=== PATIENT | male | born 1990 | race Caucasian/White ===

== ENCOUNTER 2019-12-13 17:41 | Emergency (ER) | payer BC, SELFPAY ==
[2019-12-13 17:42] VITALS: BP 132/85; PULSE 87; RESP 16; TEMP 36.4; O2SAT 99; BMI 24.3
--- NOTE | 2019-12-13 18:05 | HMH.EDUTC ---
[facility] [place] Clinical Impression: Gastroenteritis Disposition: Home, Self-Care Condition on Discharge: Good Instructions: Viral Gastroenteritis, DI for Viral Gastroenteritis -- Adult Additional Instructions: Drink plenty of fluids. Water, pedialyte or gatorade would be best. . Take tylenol or ibuprofen for pain or fever. Take the medications as directed. Return a stool sample if your diarrhea symptoms persist for the next 24 hours. Follow up with your regular doctor. GO TO THE ER FOR ANY WORSENING SYMPTOMS Prescriptions: Ondansetron [Zofran 4mg ODT] 4 mg PO Q8HP PRN #20 tab.rapdis PRN Reason: Nausea Transmission Status: Received by [id number] Referrals: Sam Ragsdale [Primary Care Provider] - Forms: Work/School Release Time of Disposition: 18:10 Medical Decision Making - Medical Records Medical records reviewed: No: I reviewed the patient's medical records. - Lul Inquiry Pt receiving controlled substance: No Vital Signs: 12/13/19 17:42 12/13/19 18:24 Temperature 97.6 F 97.6 F Temperature Source Oral Pulse Rate 87 Pulse Rate [Right Radial] 87 Respiratory Rate 16 16 Blood Pressure 132/85 Blood Pressure [Right Arm] 132/85 Blood Pressure Mean [Right Arm] 100 Blood Pressure Source [Right Arm] Automatic Cuff Blood Pressure Position [Right Arm] Sitting 02 Sat by Pulse Oximetry 99 Oxygen Delivery Method Room Air Orders (Tests/Meds): ED MEDICATIONS Discontinued Medications Generic Name Dose Route Start Last Admin Trade Name Freq PRN Reason Stop Dose Admin Ondansetron HCl 4 mg 12/13/19 18:01 12/13/19 18:01 Zofran 4mg Odt SL 12/13/19 18:02 4 mg ONCE ONE Administration [facility] [place] HPI - General Stated complaint: Possible food poison Time Seen by Provider: 12/13/19 18:05 Mode of Arrival: Ambulatory Source of Information: Patient Limitations: No Limitations HEENT Symptoms (Recalled from RN notes): No Resp Symptoms (Recalled from RN notes): No Skin Symptoms (Recalled from RN notes): No MS Symptoms (Recalled from RN notes): No Functional Status (Recalled from RN notes): N/A - History of Present Illness Provider Complaint: He c/o n/v/d for the past 2 days. His symptoms began after he ate out. No one else in his house are having similar symptoms. No one ate the same thing as he did either. He believes that he has food poisoning. - Related Data Previous Rx's Medication Instructions Recorded Ondansetron [Zofran 4mg ODT] 4 mg PO Q8HP PRN #20 tab.rapdis 12/13/19 Allergies Allergy/AdvReac Type Severity Reaction Status Date / Time SHELLFISH (FOOD) Allergy Unknown I-RASH Uncoded 10/18/18 13:45 - Worker's Comp Is this a Worker's Comp case?: No Is this an H Worker's Comp?: No Is this a [place] Worker's Comp?: No [facility] History - Hepatitis A Screen Drug use history?: No High risk sexual behaviors?: No History of sexually transmitted infection?: No Currently employed?: No Childcare worker?: No Do you have indoor plumbing?: Yes Do you have electricity?: Yes Attestation statement:: This patient has been screened for Hepatitis A risk factors. I have reviewed the patient's past medical history: Yes Medical History: Denies:: Anxiety, Cancer, Coronary Artery Disease, Depression, Diabetes Mellitus Type 1, Diabetes Mellitus Type 2, Hypertension, MRSA Other Medical History: Reports: Other Laterality Cases: Bilateral: Tonsillectomy Amputation: No - Social History Smoking Status: Current every day smoker Tobacco Type: cigarettes # Packs/Day (cigarettes): 1 Alcohol Intake: current Alcohol Intake Frequency:: holidays/special occasions only Substance Use Type: denies use Occupational Status: employed Housing: house Household Members: family - Psychiatric History Pschychiatric History:: Denies:: Anxiety, Depression Family Hx:: Hypertension, Cancer ROS Obtained: Yes All systems reviewed & no additional complaints
--- NOTE | 2019-12-13 18:18 | PC.NURSE ---
PT SENT HOME WITH ITEMS FOR OUTPATIENT DIARRHEA PANEL. PT STATES THAT ZOFRAN HAS HELPED SLIGHTLY WITH HIS NAUSEA
[2019-12-13 18:24] VITALS: BP 132/85; PULSE 87; RESP 16; TEMP 36.4; O2SAT 99
== END 2019-12-13 18:25 | disposition home or self-care (01) ==
PROVIDERS: Emergency Provider Nurse Practitioner Family; PCP Internal Medicine
DX: K52.9 Noninfective gastroenteritis and colitis, unspecified (principal); F17.210 Nicotine dependence, cigarettes, uncomplicated; Z90.09 Acquired absence of other part of head and neck
CPT/HCPCS: 99201

== ENCOUNTER → 2019-12-14 12:02 | Outpatient (CLI) | payer BC, SELFPAY ==
[2019-12-14 13:33] LABS: Adenovirus F 40/41, stool Not Detected (NotDetected); Astrovirus Not Detected (NotDetected); Campylobacter Not Detected (NotDetected); Clostridium Difficile A/B, PCR Not Detected (NotDetected); Cyclospora Cayetanesis Not Detected (NotDetected); Entamoeba histolytica Not Detected (NotDetected); Enteroaggregative E coli Not Detected (NotDetected); Enteropathogenic E coli Not Detected (NotDetected); Enterotoxigenic E coli Not Detected (NotDetected); Giardia lamblia Not Detected (NotDetected); Norovirus Not Detected (NotDetected); Plesimonas Shigalloides, PCR Not Detected (NotDetected); Rotavirus A Not Detected (NotDetected); Salmonella, PCR Not Detected (NotDetected); Sapovirus Not Detected (NotDetected); Shiga-like toxin E coli Not Detected (NotDetected); Shigella Enterovasive E coli Not Detected (NotDetected); Vibrio Cholerae Not Detected (NotDetected); Vibrio, PCR Not Detected (NotDetected); Yersinia Entercolitica, PCR Not Detected (NotDetected)
[2019-12-14 16:30] LABS: Cryptosporidium Detected (NotDetected)
== END ==
PROVIDERS: Visit Provider Nurse Practitioner Family
DX: R19.7 Diarrhea, unspecified (principal); A07.2 Cryptosporidiosis
CPT/HCPCS: 87507

== ENCOUNTER → 2020-12-31 14:49 | Outpatient (CLI) | payer BC, SELFPAY ==
[2020-12-31 15:40] LABS: Alanine Aminotransferase 17 U/L (12-78); Albumin Level 4.1 g/dl (3.5-5.0); Albumin/Globulin Ratio 1.8 (1.1-1.8); Alkaline Phosphatase 59 U/L (38-126); Anion Gap 9.4 mEq/L (5-15); Aspartate Amino Transferase 22 U/L (17-59); Bilirubin,Total 0.6 mg/dl (0.2-1.3); Blood Urea Nitrogen 14 mg/dl (9-20); Calcium 8.9 mg/dl (8.4-10.2); Carbon Dioxide 31 mmol/L (22.0-30.0); Chloride 103 mmol/L (98-107); Estimated Glomerular Filt Rate 134 ml/min (>60); GFR (African American) 162 ML/MIN (>60); Globulin 2.3 g/dL (1.3-3.2); Glucose 96 mg/dl (74-100); Potassium 4.4 mmoL/L (3.5-5.1); Sodium 139 mmol/L (136-145); Total Protein,Serum 6.4 g/dl (6.3-8.2); Uric Acid 7.2 mg/dl (3.5-8.5)
[2020-12-31 15:45] LABS: C-Reactive Protein 4.4 mg/L (0-4)
[2020-12-31 15:57] LABS: T4 (Thyroxine) 8.2 ug/dl (5.53-11.0)
[2020-12-31 16:11] LABS: Thyroid Stimulating Hormone 0.56 uIU/mL (0.465-4.68)
[2020-12-31 16:44] LABS: Amphetamine/Metha Screen,Urine Negative ng/ml (<1000); Barbiturates Screen,Urine Negative ng/ml (<200); Benzodiazepines Screen,Urine Negative ng/ml (<200); Cannabinoid Screen,Urine Positive ng/ml (<50); Cocaine Screen,Urine Negative ng/ml (<300); Methadone Screen,Urine Negative ng/ml (<300); Opiate Screen,Urine Negative ng/ml (<300); Phencyclidine Screen,Urine Negative ng/ml (<25)
[2020-12-31 17:57] LABS: Erythrocyte Sedimentation Rate 25 mm/hr (0-15)
== END ==
PROVIDERS: Visit Provider Emergency Medicine
DX: K21.9 Gastro-esophageal reflux disease without esophagitis (principal); M79.675 Pain in left toe(s)
CPT/HCPCS: 80053; 80305; 84436; 84443; 84550; 85651; 86140

== ENCOUNTER → 2021-03-26 09:43 | Outpatient (CLI) | payer BC, SELFPAY | PROVIDERS: PCP Emergency Medicine; Visit Provider Emergency Medicine | DX: Z20.822 Contact with and (suspected) exposure to COVID-19 (principal) | CPT/HCPCS: U0003 ==

== ENCOUNTER 2021-07-15 09:39 | Emergency (ER) | payer BC, SELFPAY ==
[2021-07-15 10:40] VITALS: BP 119/56; PULSE 61; RESP 18; TEMP 36.9; O2SAT 100; BMI 24.3
[2021-07-15 11:06] LABS: UTC Strep Screen (Rapid) Negative (Negative)
--- NOTE | 2021-07-15 11:27 | HMH.EDUTC ---
[facility] [place] Clinical Impression: Bronchitis Sinusitis Qualifiers: Sinusitis location: unspecified location Chronicity: unspecified Qualified Code(s): J32.9 - Chronic sinusitis, unspecified Disposition: Home, Self-Care Condition on Discharge: Good Instructions: Sinusitis, DI for Sinusitis, DI for Acute Bronchitis Additional Instructions: ? Start antibiotic today. Be sure to complete entire prescription even if feeling better ? Monitor temp. Tylenol every 4 hours as needed and / or ibuprofen every 6 hours as needed ( As long as your primary care physician has told you that it ok to take both. For fever/aches/pains ER if no less than 101 despite Tylenol or Motrin ? Humidifier/vaporizer or hot steamy shower ? Inhaler every 4-6 hours as needed like we discussed. If unsure how to use it, ask pharmacist to demonstrate how. Should help open airways and improve cough, wheezing, and shortness of breath *Tessalon Perles will not cause drowsiness but use at bedtime to help stop cough so that you may get some rest. *Start steroid tomorrow. Helps with inflammation therefore, cough and wheezing. Follow directions on the package. Reviewed side effects. Patient reports taking them before. Follow up IMMEDIATELY for new or worsening of symptoms OR no noticeable improvement over the next 48-72 hours. 911 immediately for any life threatening symptoms such as chest pain or difficulty breathing Prescriptions: Benzonatate [Benzonatate 100mg cap] 100 mg PO Q8HP PRN #15 cap PRN Reason: Cough Transmission Status: Received by [facility] predniSONE [Deltasone 10mg tablet] 10 mg PO BID #10 tab Transmission Status: Received by [facility] Azithromycin [Z-Bernard 250mg Tab] 250 mg PO DIRECTED #6 tab Transmission Status: Received by [facility] Referrals: Kt Hamilton MD [Primary Care Provider] - As needed Time of Disposition: 11:35 Medical Decision Making - Lul Inquiry Pt receiving controlled substance: No Lul was queried for this patient: No Vital Signs: 07/15/21 10:40 07/15/21 11:49 Temperature 98.5 F 98.5 F Temperature Source Oral Pulse Rate 61 Pulse Rate [Left Brachial] 61 Respiratory Rate 18 18 Blood Pressure 119/56 L Blood Pressure [Left Arm] 119/56 L Blood Pressure Mean [Left Arm] 77 Blood Pressure Source [Left Arm] Automatic Cuff Blood Pressure Position [Left Arm] Sitting 02 Sat by Pulse Oximetry 100 Oxygen Delivery Method Room Air - Lab Data Lab results reviewed: Yes: I reviewed the patient's lab results. Lab Results 07/15/21 10:54: Strep Scn [facility] Negative Orders (Tests/Meds): ED MEDICATIONS Discontinued Medications Generic Name Dose Route Start Last Admin Trade Name Monika PRN Reason Stop Dose Admin Ceftriaxone Sodium 1 gm 07/15/21 11:32 07/15/21 11:49 Ceftriaxone 1gm Vial IM 07/15/21 11:33 1 gm ONCE ONE Administration Lidocaine HCl 0 ml 07/15/21 11:32 07/15/21 11:49 Lidocaine 1% 5ml Pf Vial IM 07/15/21 11:33 2 ml ONCE ONE Administration Methylprednisolone Sodium Succinate 125 mg 07/15/21 11:32 07/15/21 11:49 Methylprednisolone Sod Succ 125mg Vial IM 07/15/21 11:33 125 mg ONCE ONE Administration ORDERS Category Date Time Status Strep Screen Confirmation Stat Micro 07/15/21 10:54 Received [facility] [place] - General Stated complaint: sore throat, cough, soa Time Seen by Provider: 07/15/21 11:27 Mode of Arrival: Ambulatory Source of Information: Patient Limitations: No Limitations Description of Symptoms (Recalled from Triage Doc. by RN): PATIENT C/O SORE THROAT, BODY ACHES, AND COUGH X 2 WEEKS HEENT Symptoms (Recalled from RN notes): Yes Resp Symptoms (Recalled from RN notes): Yes Skin Symptoms (Recalled from RN notes): No MS Symptoms (Recalled from RN notes): No Functional Status (Recalled from RN notes): WNL - History of Present Illness Provider Complaint: Patient state that he has been having sinus pa
[2021-07-15 11:49] VITALS: BP 119/56; PULSE 61; RESP 18; TEMP 36.9; O2SAT 100
== END 2021-07-15 11:55 | disposition home or self-care (01) ==
PROVIDERS: Emergency Provider Nurse Practitioner; PCP Emergency Medicine
DX: J20.9 Acute bronchitis, unspecified (principal); J32.9 Chronic sinusitis, unspecified; F41.8 Other specified anxiety disorders; F17.210 Nicotine dependence, cigarettes, uncomplicated
CPT/HCPCS: 87880; 96372; 99202; G0463

== ENCOUNTER 2022-03-23 09:37 | Emergency (ER) | payer BC, SELFPAY ==
[2022-03-23] VITALS (13 sets, daily range): BP systolic 102–133; BP diastolic 65–88; PULSE 47–71; RESP 14–18; TEMP 36.8; O2SAT 96–100; BMI 23.6
--- NOTE | 2022-03-23 09:37 | ECG_ITS ---
APPROVED REPORT Exam: Resting ECG HR:61 bpm ECG Measurements Heart Rate 61 AXES GA 127 P 52 QRSd 93 QRS 38 QT 371 T 45 QTc 373 Conclusion SINUS RHYTHM LOW QRS VOLTAGE IN PRECORDIAL LEADS ST elevation c/w early repolarization Electronically signed by : David Zambrano MD 03/23/2022 21:22:44
--- NOTE | 2022-03-23 09:51 | XR_ITS ---
FINAL REPORT CLINICAL HISTORY: Chest pain, syncope COMPARISON: March 28, 2018 FINDINGS: SINGLE VIEW CHEST. The heart is normal in size. The mediastinum is unremarkable. There is a calcified granuloma in the left lung base. The lungs are otherwise clear. There is no pneumothorax. IMPRESSION: No acute process. Reviewed, Interpreted and Dictated by Flaco Chaudhary MD Transcribed by Vita Piper Authenticated and [facility]
--- NOTE | 2022-03-23 09:51 | CT_ITS ---
FINAL REPORT TECHNIQUE: Axial CT images were performed through the head. Coronal reformatted images were submitted. This study was performed with techniques to keep radiation doses as low as reasonably achievable (ALARA). Individualized dose reduction techniques using automated exposure control or adjustment of mA and/or kV according to the patient's size were employed. CLINICAL HISTORY: Syncope FINDINGS: The brain parenchyma is homogeneous. The ventricles are normal in size. There is no evidence of hemorrhage. There is no mass or edema identified. There is no abnormal extra-axial fluid seen. There is moderate mucoperiosteal thickening in both maxillary sinuses, ethmoid air cells and frontal sinuses. IMPRESSION: No acute process. Moderate chronic bilateral maxillary sinusitis. Reviewed, Interpreted and Dictated by Flaco Chaudhary MD Transcribed by Vita Piper Authenticated and [facility]
--- NOTE | 2022-03-23 09:52 | HMH.EDCP ---
ED Disposition Clinical Impression: Chest pain Qualifiers: Chest pain type: unspecified Qualified Code(s): R07.9 - Chest pain, unspecified Disposition: Home, Self-Care Condition on Discharge: Good Instructions: DI for Atypical Chest Pain Additional Instructions: Off work today. Return for worsening chest pain or other concerns. Ibuprofen 400 to 600 mg 3-4 times daily as needed for discomfort. Stay well hydrated and avoid the heat is much as possible. Referrals: Provider,Referral, MD [Primary Care Provider] - Forms: Work/School Release - Critical Care Critical Care Time: No Attestation: On , the high probability of a clinically significant, sudden or life threatening deterioration of the following system(s) required my full and direct attention, intervention and personal management. The time I documented below is in addition to time spent performing reported procedures but includes the following listed in this critical care notation. Medical Decision Making - Medical Records Medical records reviewed: Yes: I reviewed the patient's medical records. - Lul Inquiry Pt receiving controlled substance: No Vital Signs: 03/23/22 09:40 03/23/22 10:00 03/23/22 10:03 Temperature 98.2 F Temperature Source Oral Pulse Rate 71 Pulse Rate [Orthostatic Lying] 54 L Pulse Rate [Orthostatic Standing] 71 Pulse Rate [Right Radial] 66 Respiratory Rate 16 16 Blood Pressure 133/88 Blood Pressure [Orthostatic Lying] 113/65 Blood Pressure [Orthostatic Standing] 109/81 L Blood Pressure [Right Arm] 131/70 Blood Pressure Mean 95 Blood Pressure Mean [Right Arm] 90 Blood Pressure Source Blood Pressure Source [Right Arm] Automatic Cuff Blood Pressure Position Blood Pressure Position [Right Arm] Sitting 02 Sat by Pulse Oximetry 100 100 Oxygen Delivery Method Room Air 03/23/22 10:14 03/23/22 10:15 03/23/22 10:30 Temperature Temperature Source Pulse Rate 54 L 71 56 L Pulse Rate [Orthostatic Lying] Pulse Rate [Orthostatic Standing] Pulse Rate [Right Radial] Respiratory Rate 16 18 16 Blood Pressure 113/65 109/81 L 114/71 Blood Pressure [Orthostatic Lying] Blood Pressure [Orthostatic Standing] Blood Pressure [Right Arm] Blood Pressure Mean 88 87 82 Blood Pressure Mean [Right Arm] Blood Pressure Source Blood Pressure Source [Right Arm] Blood Pressure Position Blood Pressure Position [Right Arm] 02 Sat by Pulse Oximetry 98 98 96 Oxygen Delivery Method 03/23/22 11:00 03/23/22 11:30 03/23/22 12:21 Temperature Temperature Source Pulse Rate 54 L 53 L 49 L Pulse Rate [Orthostatic Lying] Pulse Rate [Orthostatic Standing] Pulse Rate [Right Radial] Respiratory Rate 15 17 14 Blood Pressure 114/82 111/77 110/69 Blood Pressure [Orthostatic Lying] Blood Pressure [Orthostatic Standing] Blood Pressure [Right Arm] Blood Pressure Mean 88 88 82 Blood Pressure Mean [Right Arm] Blood Pressure Source Blood Pressure Source [Right Arm] Blood Pressure Position Blood Pressure Position [Right Arm] 02 Sat by Pulse Oximetry 98 98 97 Oxygen Delivery Method 03/23/22 12:30 03/23/22 13:00 03/23/22 13:30 Temperature Temperature Source Pulse Rate 48 L 47 L 48 L Pulse Rate [Orthostatic Lying] Pulse Rate [Orthostatic Standing] Pulse Rate [Right Radial] Respiratory Rate 15 14 16 Blood Pressure 102/72 L 109/69 L 121/73 Blood Pressure [Orthostatic Lying] Blood Pressure [Orthostatic Standing] Blood Pressure [Right Arm] Blood Pressure Mean 80 82 84 Blood Pressure Mean [Right Arm] Blood Pressure Source Blood Pressure Source [Right Arm] Blood Pressure Position Blood Pressure Position [Right Arm] 02 Sat by Pulse Oximetry 97 98 97 Oxygen Delivery Method 03/23/22 14:05 Temperature 98.2 F Temperature Source Pulse Rate 48 L Pulse Rate [Orthostatic Lying] Pulse Rate [Orthostatic St
[2022-03-23 10:00] LABS: Basophils # 0.1 K/mm3 (0-0.2); Basophils % 0.9 % (0.1-2.0); Eosinophils # 0.3 K/mm3 (0.0-0.4); Eosinophils % 5.6 % (0.1-12.0); Hemoglobin 15.4 g/dL (14.1-18.0); Lymphocytes # 1.2 K/mm3 (0.7-4.5); Lymphocytes % 22.8 % (10-50); Mean Corpuscular HGB Conc 32.1 g/dL (31.8-35.4); Mean Corpuscular Hemoglobin 30.6 pg (27.0-31.2); Mean Corpuscular Volume 95.3 fl (80-94); Mean Platelet Volume 7.7 fl (7.4-10.4); Monocytes # 0.3 K/mm3 (0.1-1.0); Monocytes % 5.9 % (1.7-9.3); Neutrophils # 3.5 K/mm3 (1.8-7.8); Neutrophils % 64.8 % (37.0-80.0); Platelet Count 222 K/mm3 (142-424); Red Blood Count 5.04 M/mm3 (4.60-6.20); Red Cell Distribution Width 13.5 % (11.5-17.5); White Blood Count 5.4 K/mm3 (4.8-10.8)
[2022-03-23 10:02] LABS: Chloride 101 mmol/L (98-107); Potassium 4.2 mmoL/L (3.5-5.1); Sodium 138 mmol/L (136-145)
--- NOTE | 2022-03-23 10:03 | PC.NURSE ---
pt to RAD for scan
[2022-03-23 10:05] LABS: Alanine Aminotransferase 25 U/L (12-78); Albumin Level 4.3 g/dl (3.5-5.0); Albumin/Globulin Ratio 1.8 (1.1-1.8); Alkaline Phosphatase 68 U/L (38-126); Aspartate Amino Transferase 29 U/L (17-59); Bilirubin,Total 0.6 mg/dl (0.2-1.3); Blood Urea Nitrogen 12 mg/dl (9-20); Carbon Dioxide 33 mmol/L (22.0-30.0); Creatinine Clearance Estimated 144 mL/min (50-200); Estimated Glomerular Filt Rate 114 ml/min (>60); GFR (African American) 138 ML/MIN (>60); Globulin 2.4 g/dL (1.3-3.2); Total Protein,Serum 6.7 g/dl (6.3-8.2)
[2022-03-23 10:06] LABS: Anion Gap 8.2 mEq/L (5-15); Calcium 8.3 mg/dl (8.4-10.2); Glucose 95 mg/dl (74-100)
[2022-03-23 10:18] LABS: Troponin I < 0.01 ng/ml (0.00-0.034)
--- NOTE | 2022-03-23 10:18 | PC.NURSE ---
orthostatic BPs obtained
--- NOTE | 2022-03-23 11:38 | PC.NURSE ---
ECHO in progress
[2022-03-23 12:39] LABS: Troponin I < 0.01 ng/ml (0.00-0.034)
--- NOTE | 2022-03-23 13:26 | HMH.CNCARD ---
History of Present Illness Consult date: 03/23/22 Requesting physician: Vipul Davis Consult reason: chest pain Chief complaint: chest pain and syncope History of present illness: This is a 31-year-old white gentleman who presented to the emergency department with complaints of syncope and chest pain. The patient states that he woke up this morning with sudden onset of chest pain that feels like a pinching sensation. He states that this lasted for approximately 15 minutes and radiates to his back. He states that it feels as if his heart is pounding out of his chest. He states that when he got up this morning the chest pain was pretty severe and then he passed out. The patient states that he was not out long. He states that he has had this chest pain in the past for approximately a week. He also reports that when he had COVID he had an episode of passing out as well. He denies any shortness of breath or edema. He denies any fever, chills, nausea, vomiting, diarrhea, PND or orthopnea. [facility] History I have reviewed the patient's past medical history: Yes Medical History: Denies:: Anxiety, Cancer, Coronary Artery Disease, Depression, Diabetes Mellitus Type 1, Diabetes Mellitus Type 2, Hypertension, MRSA *Have you ever received a pneumonia vaccine?: No *Have you received a flu vaccine this season?: No Other Medical History: Reports: Other Laterality Cases: Bilateral: Tonsillectomy Amputation: No - *Social History Smoking Status: Current every day smoker Tobacco Type: cigarettes # Packs/Day (cigarettes): 1 Alcohol Intake: current Alcohol Intake Frequency:: holidays/special occasions only Substance Use Type: denies use *Occupational Status:: employed Housing: house Household Members: family *Travel in the last 8 weeks: None - Psychiatric History Pschychiatric History:: Denies:: Anxiety, Depression Family Hx:: Hypertension, Cancer Meds Home Medications Medication Instructions Recorded Confirmed Type ciprofloxacin HCl 500 mg tablet 500 mg PO BID #30 tab 12/11/21 12/11/21 Rx naproxen 500 mg tablet 500 mg PO BID PRN #60 tab 12/11/21 12/11/21 Rx Allergies Allergy/AdvReac Type Severity Reaction Status Date / Time shellfish derived Allergy Verified 12/11/21 13:52 Exam Vital signs and Labs for Last 24 Hours: Temp Pulse Resp BP Pulse Ox 98.2 F 56 L 16 114/71 96 03/23/22 09:40 03/23/22 10:30 03/23/22 10:30 03/23/22 10:30 03/23/22 10:30 Laboratory Results - last 24 hr 03/23/22 09:45: WBC 5.4, RBC 5.04, Hgb 15.4, Hct 48.0, MCV 95.3 H, MCH 30.6, MCHC 32.1, RDW 13.5, Plt Count 222, MPV 7.7, Neut % (Auto) 64.8, Lymph % (Auto) 22.8, [place] % (Auto) 5.9, Eos % (Auto) 5.6, Baso % (Auto) 0.9, Neut # (Auto) 3.5, Lymph # (Auto) 1.2, [place] # (Auto) 0.3, Eos # (Auto) 0.3, Baso # (Auto) 0.1 03/23/22 09:45: Sodium 138, Potassium 4.2, Chloride 101, Carbon Dioxide 33 H, Anion Gap 8.2, BUN 12, Creatinine 0.80, Estimated Creat Clear 144, Estimated GFR 114, Est GFR ( Amer) 138, Glucose 95, Calcium 8.3 L, Total Bilirubin 0.6, AST 29, ALT 25, Alkaline Phosphatase 68, Troponin I < 0.01, Total Protein 6.7, Albumin 4.3, Globulin 2.4, Albumin/Globulin Ratio 1.8 03/23/22 12:00: Troponin I < 0.01 I & O for Last 24 hours: Intake & Output 03/20/22 03/21/22 03/22/22 03/23/22 23:59 23:59 23:59 23:59 Weight 165 lb Narrative: EKG is sinus rhythm with early repolarization. - Constitutional no acute distress, average body habitus - *Routine HEENT Exam Head: Present: normocephalic, atraumatic Eye: Present: EOMI, PERRL ENT: Present: mucous membranes moist - *Routine Neck Exam Present: supple, full ROM, normal carotid upstroke. Absent: JVD, carotid bruit, lymphadenopathy - *Routine Respiratory Exam Present: CTA bilaterally - *Routine Cardiovascular Exam Present: RRR, Normal S1, Normal S2. Absent: murmur - *Routine Abdominal Exam Present: soft, normoactive bowel sounds. Absent: tenderness, distended -
== END 2022-03-23 14:06 | disposition home or self-care (01) ==
PROVIDERS: Emergency Provider Emergency Medicine
DX: R07.9 Chest pain, unspecified (principal)
CPT/HCPCS: 36415; 70450; 71045; 80053; 84484; 85025; 93005; 93306; 99285

== ENCOUNTER → 2022-07-29 20:40 | Outpatient (CLI) | payer BC, SELFPAY ==
[2022-07-29 18:29] LABS: Basophils % 0.7 % (0.1-2.0); Eosinophils # 0.1 K/mm3 (0.0-0.4); Eosinophils % 2.3 % (0.1-12.0); Hematocrit 50.4 % (42.0-52.0); Hemoglobin 16.6 g/dL (14.1-18.0); Lymphocytes # 1.3 K/mm3 (0.7-4.5); Lymphocytes % 23.1 % (10-50); Mean Corpuscular HGB Conc 32.8 g/dL (31.8-35.4); Mean Corpuscular Hemoglobin 29.7 pg (27.0-31.2); Mean Corpuscular Volume 90.6 fl (80-94); Mean Platelet Volume 7.8 fl (7.4-10.4); Monocytes # 0.2 K/mm3 (0.1-1.0); Monocytes % 4.1 % (1.7-9.3); Neutrophils # 3.9 K/mm3 (1.8-7.8); Neutrophils % 69.8 % (37.0-80.0); Platelet Count 247 K/mm3 (142-424); Red Blood Count 5.57 M/mm3 (4.60-6.20); Red Cell Distribution Width 13.2 % (11.5-17.5); White Blood Count 5.6 K/mm3 (4.8-10.8)
[2022-07-29 18:38] LABS: Alanine Aminotransferase 21 U/L (12-78); Albumin Level 4.7 g/dl (3.5-5.0); Albumin/Globulin Ratio 1.8 (1.1-1.8); Alkaline Phosphatase 78 U/L (38-126); Amylase 46 U/L (30-110); Anion Gap 12.3 mEq/L (5-15); Aspartate Amino Transferase 22 U/L (17-59); Bilirubin,Total 0.7 mg/dl (0.2-1.3); Blood Urea Nitrogen 12 mg/dl (9-20); Calcium 9.3 mg/dl (8.4-10.2); Carbon Dioxide 30 mmol/L (22.0-30.0); Chloride 100 mmol/L (98-107); Chol/HDL Ratio 4.6 (1-3.5); Cholesterol 193 mg/dl (140-200); Estimated Glomerular Filt Rate 114 ml/min (>60); GFR (African American) 138 ML/MIN (>60); Globulin 2.6 g/dL (1.3-3.2); Glucose 103 mg/dl (74-100); HDL Cholesterol 42 mg/dl (40-60); Lipase 48 U/L (23-300); Potassium 4.3 mmoL/L (3.5-5.1); Sodium 138 mmol/L (136-145); Total Protein,Serum 7.3 g/dl (6.3-8.2); Triglycerides 127 mg/dl (30-150); VLDL Cholesterol 25 mg/dL (0-40)
[2022-07-29 18:39] LABS: Hemoglobin A1C 5.1 % (4.0-6.0)
[2022-07-29 18:49] LABS: Direct LDL Cholesterol 121.86 mg/dL (100-129)
[2022-07-29 19:08] LABS: Thyroid Stimulating Hormone 0.91 uIU/mL (0.465-4.68)
== END ==
PROVIDERS: PCP Student in an Organized Health Care Education/Training Program; Visit Provider Student in an Organized Health Care Education/Training Program
DX: R10.11 Right upper quadrant pain (principal); R51.9 Headache, unspecified; R53.1 Weakness; R11.0 Nausea; K21.9 Gastro-esophageal reflux disease without esophagitis; Z13.1 Encounter for screening for diabetes mellitus; Z13.220 Encounter for screening for lipoid disorders; Z13.29 Encounter for screening for other suspected endocrine disorder
CPT/HCPCS: 80053; 80061; 82150; 83036; 83690; 84443; 85025

== ENCOUNTER 2025-01-16 09:59 | Outpatient (CLI) | payer OTHER, SELFPAY ==
--- NOTE | 2025-01-16 10:03 | XR_ITS ---
FINAL REPORT CLINICAL HISTORY: foot pain states pain 1st digit around MTP joint FINDINGS: LEFT FOOT Three views were obtained. There is no fracture or dislocation. There are mild hypertrophic changes of the first metatarsal phalangeal joint. There is an enostosis of the distal third metatarsal. No soft tissue abnormality is identified. IMPRESSION: Mild degenerative changes. Reviewed, Interpreted and Dictated by Flaco Chaudhary MD Transcribed by Concepción Daniel Authenticated and [facility]
--- OUTSIDE RECORDS SUMMARY | 2025-01-16 10:07 | XMS_ITS | Clinical Summary ---
Author Organization Healthcare Address [address] [place] [address] Care Team Providers Care Director Cardiovascular Name Role Phone Sam Ragsdale MD Primary Care Provider [phone] Family History Medical History Relation Name Comments Depression Father Breast cancer Maternal Grandmother Osteoarthritis Mother Relation Name Status Comments Father Maternal Grandmother Mother Social History Tobacco Use Types Packs/Day Years Used Date Smoking Tobacco: Every Day Alcohol Use Standard Drinks/Week Comments Yes 0 (1 standard drink = 0.6 oz pur e alcohol) Sex and Gender Information Value Date Recorded Sex Assigned at Not on file Legal Sex Male 8:29 PM EDT Gender Identity Not on file Sexual Orientation Not on file Last Filed Vital Signs Vital Sign Reading Time Taken Comments Blood Pressure - - Pulse - - Temperature - - Respiratory Rate - - Oxygen Saturation - - Inhaled Oxygen Concentration - - Weight 63.5 kg (139 lb 15.9 oz) 11/05/2013 2:38 PM EDT Height 175.3 cm (5' 9 ) 11/05/2013 2:38 PM EDT Body Mass Index 20.67 11/05/2013 2:38 PM EDT Plan of Treatment Health Maintenance Due Date Last Done Comments [facility]-Depression Screening 1992 [facility]-/Child/Adol SDOH Screenings 1992 [facility]-Varicella Vaccines (1 of 2 - 13+ 2-dose series) 2005 HPV Vaccines (1 - Male 3-dos e series) 12/23/2007 [facility]- SDOH Screenings 2010 [facility]-Adult SDOH Screenings 2010 [facility]-DTaP,Tdap,and Td Vaccine s (1 - Tdap) 12/23/2011 [facility]-Hepatitis B Vaccines (1 of 3 - 19+ 3-dose series) 12/23/2011 [id number] Vaccine (1 - 20 24-25 season) 2024 [facility]-Influenza Vaccine ([place] n Ended) 2025 [facility]-Zoster Vaccines (1 of 2) 2042 [facility]-HIB Vaccines Aged Out No longer e ligible based on patient's age to complete this topic [facility]-Hepatitis A Vaccines Aged Out No longer eligible based on patient's age to complete this topic [facility]-IPV Vaccines Aged Out No longer e ligible based on patient's age to complete this topic [facility]-Pneumococcal Vaccine: Pediatrics (0 to 5 Years) and At-Risk Patients (6 to 49 Years) Aged Out No long er eligible based on patient's age to complete this topic [facility]-Rotavirus Vaccines Aged Out No lo nger eligible based on patient's age to complete this topic Care Teams Director Cardiovascular Relationship Specialty Start Date End Date Sam Ragsdale MD [facility] [address] [place] [address] PCP - General 12/12/20
[2025-01-16 18:28] LABS: Basophils % 0.6 % (0.1-2.0); Eosinophils # 0.2 Kmm3 (0.0-0.4); Eosinophils % 3.1 % (0.1-12.0); Hematocrit 47.8 % (42.0-52.0); Hemoglobin 16.3 g/dL (14.1-18.0); Immature Granulocytes # 0.03 10^3uL; Immature Granulocytes % 0.6 %; Lymphocytes # 1.5 K/mm3 (0.7-4.5); Lymphocytes % 29.4 % (10-50); Mean Corpuscular HGB Conc 34.1 g/dL (31.8-35.4); Mean Corpuscular Hemoglobin 30.5 pg (27.0-31.2); Mean Corpuscular Volume 89.5 fl (80-94); Mean Platelet Volume 9.5 fl (7.4-10.4); Monocytes # 0.4 K/mm3 (0.1-1.0); Monocytes % 7.2 % (1.7-9.3); Neutrophils # 3.1 K/mm3 (1.8-7.8); Neutrophils % 59.1 % (37.0-80.0); Nucleated Red Blood Cells # 0 10^3/uL; Nucleated Red Blood Cells % 0 %; Platelet Count 235 K/mm3 (142-424); Red Blood Count 5.34 M/mm3 (4.60-6.20); Red Cell Distribution Width 13.1 % (11.5-17.5); Red Cell Distribution Width-SD 42.4 fL; White Blood Count 5.2 K/mm3 (4.8-10.8)
[2025-01-16 19:10] LABS: Alanine Aminotransferase 34 U/L (12-78); Albumin Level 4.4 g/dl (3.5-5.0); Albumin/Globulin Ratio 1.7 (1.1-1.8); Alkaline Phosphatase 73 U/L (38-126); Anion Gap 9.2 mEq/L (5-15); Aspartate Amino Transferase 28 U/L (17-59); Bilirubin,Total 0.9 mg/dl (0.2-1.3); Blood Urea Nitrogen 14 mg/dl (9-20); Carbon Dioxide 29 mmol/L (22.0-30.0); Chloride 103 mmol/L (98-107); Chol/HDL Ratio 5.1 (1-3.5); Cholesterol 185 mg/dl (140-200); Estimated Glomerular Filt Rate 112 ml/min (>60); GFR (African American) 136 ML/MIN (>60); Globulin 2.6 g/dL (1.3-3.2); Glucose 99 mg/dl (74-100); HDL Cholesterol 36 mg/dl (40-60); Potassium 4.2 mmoL/L (3.5-5.1); Sodium 137 mmol/L (136-145); Triglycerides 137 mg/dl (30-150); Uric Acid 9.6 mg/dl (3.5-8.5); VLDL Cholesterol 27 mg/dL (0-40)
[2025-01-16 19:27] LABS: Direct LDL Cholesterol 111.71 mg/dL (100-129)
[2025-01-16 19:39] LABS: Thyroid Stimulating Hormone 0.88 uIU/mL (0.465-4.68)
[2025-01-16 19:40] LABS: 25-OH Vitamin D, Total 22.6 ng/mL (30-100); HIV Combo NEGATIVE (Negative)
[2025-01-16 20:22] LABS: Hepatitis C Ab Qual. W/ RFX NEGATIVE (Negative)
[2025-01-18 05:42] LABS: Hepatitis B Surface Antigen Negative (Negative)
== END 2025-01-16 23:59 | disposition home or self-care (01) ==
PROVIDERS: PCP Family Medicine; Visit Provider Family Medicine
DX: M19.072 Primary osteoarthritis, left ankle and foot (principal); M10.9 Gout, unspecified; Z11.59 Encounter for screening for other viral diseases; Z76.89 Persons encountering health services in other specified circumstances
CPT/HCPCS: 73630; 80053; 80061; 82306; 83036; 84443; 84550; 85025; 86803; 87340; 87389